=== PATIENT | female | born 1960 | race Caucasian/White ===

== ENCOUNTER 2020-10-27 10:07 | Outpatient (CLI) | payer OTHER, SELFPAY | END 2020-10-27 10:08 | disposition home or self-care (01) | LOC: ANHCOVIDVC 10:10 | PROVIDERS: PCP Internal Medicine | DX: Z23 Encounter for immunization (principal) | CPT/HCPCS: 0001A; 91300 ==

== ENCOUNTER 2020-11-17 10:12 | Outpatient (CLI) | payer OTHER, SELFPAY | END 2020-11-17 10:13 | disposition home or self-care (01) | LOC: ANHCOVIDVC 10:12 | PROVIDERS: PCP Internal Medicine | DX: Z23 Encounter for immunization (principal) | CPT/HCPCS: 0002A; 91300 ==

== ENCOUNTER 2024-09-18 08:50 | Outpatient (CLI) | payer OTHER, SELFPAY ==
--- OUTSIDE RECORDS SUMMARY | 2024-09-18 09:21 | XMS_ITS | Clinical Summary ---
Author Organization [facility] Address [address], [facility] [address] [place] [address] Phone Care Team Providers Care Refrigeration Technician Name Role Phone Domenic Bravo MD Primary Care Provider [phone] Matt Reilly DO Unavailable [phone] Mike Ace DPM Unavailable [phone] Allergies Active Allergy Reactions Criticality Noted Date Comments Dust Mite Extract Unknown 10/12/2016 Causes sneezing & headaches Sulfa Antibiotics Rash 07/26/2015 Medications buPROPion SR (WELLBUTRIN SR) 150 MG TABLET SR 12 HR Take 150 mg by mouth daily. Active cyclobenzaprine (FLEXERIL) 10 MG TabletIndication s:and prn - no more than 4 times a day Take 10 mg by mouth daily. Indications : and prn - no more than 4 times a day Active losartan (COZAAR) 25 MG Tablet Take 25 mg by mouth daily. Active metFORMIN (GLUCOPHAGE) 500 MG Tablet Take 500 mg by mouth 2 times daily (with meals). Active ranitidine (ZANTAC) 300 MG Tablet Take 300 mg by mouth daily. Active simvastatin (ZOCOR) 40 MG Tablet Take 40 mg by mouth daily. Active amitriptyline (ELAVIL) 10 MG Tablet 2 08/20/2015 Active Active Problems Problem Noted Date Diagnosed Date Onycholysis of toenail 01/30/2017 Controlled type 2 diabetes m ellitus without complication, without long-term current use of insulin 10/12/2016 BRANDON (obstructive sleep apnea) 09/22/2015 PLMD (periodic limb movement disorder) 6 Iron metabolism disorder 09/22/2015 Hypertrophy of inferior nasal turbinate 09/22/19 16 PNAR (perennial non-allergic rhinitis) 6 Resolved Problems Problem Noted Date Diagnosed Date Resolved Date Pain of great toe 10/12/2016 01/30/2017 Pain of great toe 10/12/2016 01/30/2017 Ingrown right greater toenail 10/12/2016 01/30/2017 Ingrown left greater toenail 10/12/2016 01/30/2017 Family History Medical History Relation Name Comments Cirrhosis Father Diabetes Mother Heart Attack Mother triple bypass High Cholesterol Mother Hypertension Mother Osteoarthritis Mother Thyroid Disease Mother Relation Name Status Comments Father Mother Social History Tobacco Use Types Packs/Day Years Used Date Smoking Tobacco: Former Cigarettes 2.5 40 0 07/26/1969 - 07/26/2009 Smokeless Tobacco: Never Tobacco Cessation:Counseling Given: Yes Alcohol Use Standard Drinks/Week Comments Yes 0 (1 standard drink = 0.6 oz pur e alcohol) occasional [place] Whiskey Comments No Sex and Gender Information Value Date Recorded Sex Assigned at Not on file Legal Sex Female 10:15 PM CDT Gender Identity Not on file Sexual Orientation Not on file Occupation Industry Job Start Date Job End Date disabled Not on file Not on file 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 Not on file Not on file Last Filed Vital Signs Vital Sign Reading Time Taken Comments Blood Pressure 114/78 01/30/2017 3:47 PM CDT Pulse 92 01/30/2017 3:47 PM CDT Temperature 36.2 C (97.2 F) 01/30/2017 3:47 PM CDT Respiratory Rate 18 01/30/2017 3:47 PM CDT Oxygen Saturation 94% 01/30/2017 3:47 PM CDT Inhaled Oxygen Concentration - - Weight 103.9 kg (229 lb) 01/30/2017 3:47 PM CDT Height 158.8 cm (5' 2.5 ) 01/30/2017 3:47 PM CDT Body Mass Index 41.22 01/30/2017 3:47 PM CDT Plan of Treatment Health Maintenance Due Date Last Done Comments Diabetes: Eye Exam 1960 Diabetes: Foot Exam 1960 Hepatitis C Virus (HCV) Screening 1960 TdaP Immunization 1960 Pneumococcal Immunization Co mbined (1 of 2 - PCV) 02/21/1966 Pneumococcal Immunization (5 0+ years) (1 of 2 - PCV) 02/21/1979 Pap Smear 02/21/1981 Cervical Cancer Screening (CCS) 02/21/1990 HPV/Cotest 02/21/1990 Cologuard 02/21/2010 Immunochemical Fecal Occult Blood 02/21/2010 Mammogram 02/21/2010 Zoster Immunization (1 of 2) 02/21/2010 Diabetes: Hemoglobin A1c 03/28/2017 09/25/2016 Diabetes: Nephropathy Screening 09/25/2017 7 Influenza Immunization (#1) 2024 SARS-COV-2 Immunization ( - season) 2024 Colonoscopy 08/03/2025 08/03/2015 Colorectal Cancer Screening 08/03/2025 Respiratory Syncytial Virus (RSV) Immunization (Adult) (1 - 1-dose 75+ series) 02/21/2035 08/03/2015 Hepatitis B Immunization Aged Out No longer eligible based on patient's age to complete this topic Meningococcal Immunization (ACWY) Aged Out No longer eligible based on patient's age to complete this topic Rotavirus Immunization Aged Out No lo nger eligible based on patient's age to complete this topic Procedures Procedure Name Priority Date/Time Associated Diagnosis Comments CMP (COMPREHENSIVE METABOLIC PANEL) Routine 09/25/2016 HEMOGLOBIN, A1C Routine 09/25/2016 from Last 3 Months or Most Recently Relevant to Health Maintenance Results * HEMOGLOBIN, A1C (09/25/2016) HGB-A1C 6.1 % Blood specimen (specimen) 09/25/2016 us Domenic Bravo MD CHEMISTRY ORDERABLES Final Res ult * CMP (COMPREHENSIVE METABOLIC PANEL) (09/25/2016) Blood specimen (specimen) us Domenic Bravo MD CHEMISTRY ORDERABLES Final Res ult from Last 3 Months or Most Recently Relevant to Health Maintenance Insurance MEDICAID [employer] Care Teams Refrigeration Technician Relationship Specialty Start Date End Date Domenic Bravo MD [address] [place] [address] [place] [address] PCP - General Family Medicine 07/31/15 Matt Reilly DO [address] [place] [address] [place] [address] Consulting Physician Gastroenterology 09/15/15 Mike Ace DPM [address] [place] [address] [place] [address] Consulting Physician Podiatry 10/12/16
--- OUTSIDE RECORDS SUMMARY | 2024-09-18 09:21 | XMS_ITS ---
Care Plan - [facility] Created on: September 18, 2024 ADRI EDMONDS : 1960 Sex: Female Author Organization [facility] Address [address] [place] [id number] Phone Care Team Providers Care Dough Maker Name Role Phone Unavailable Unavailable Unavailable
--- OUTSIDE RECORDS SUMMARY | 2024-09-18 09:22 | XMS_ITS | Clinical Summary ---
Author Organization [facility] Address [address] [place] [id number] Care Team Providers Care Soils Engineer Name Role Phone Unavailable Primary Care Provider Unavailabl e Social History Tobacco Use Types Packs/Day Years Used Date Smoking Tobacco: Never Assessed Comments Unknown Sex and Gender Information Value Date Recorded Sex Assigned at Not on file Legal Sex Female 7:07 PM CDT Gender Identity Not on file Sexual Orientation Not on file Last Filed Vital Signs Vital Sign Reading Time Taken Comments Blood Pressure 143/84 05/28/2013 9:53 AM PREFORMS LAMINATOR Pulse 100 05/28/2013 9:53 AM PREFORMS LAMINATOR Temperature - - Respiratory Rate - - Oxygen Saturation - - Inhaled Oxygen Concentration - - Weight 96.2 kg (212 lb) 05/28/2013 9:53 AM PREFORMS LAMINATOR Height 162.6 cm (5' 4 ) 05/28/2013 9:53 AM PREFORMS LAMINATOR Body Mass Index 36.39 05/28/2013 9:53 AM PREFORMS LAMINATOR Plan of Treatment Health Maintenance Due Date Last Done Comments Cervical Cancer Screening Pa p Smear (Age 30 to 64) Every 3 Years 1960 Colorectal Cancer Screening Colonoscopy (10 Years) 1960 Annual Physical 02/21/1963 Hepatitis C 02/21/1978 DTaP, Tdap and Td Vaccines ( 1 - Tdap) 02/21/1979 Cervical Cancer Screening Pa p with HPV Testing (Age 30 to 64) Every 5 Years 02/21/1990 Cervical Cancer Screening with HPV 02/21/1990 Mammogram Screening 2000 Zoster Vaccines (1 of 2) 02/21/2010 COVID-19 Vaccine ( - 2023-2 5 season) 2024 Influenza Adult (#1) 2024 RSV Immunization or 60+ Years (1 - 1-dose 75+ series) 02/21/2035 Meningococcal B Vaccine Aged Out No l onger eligible based on patient's age to complete this topic Meningococcal Vaccine Aged Out No joe magnus eligible based on patient's age to complete this topic Pneumococcal Vaccine: Pediat rics (0 to 5 Years) and At-Risk Patients (6 to 64 Years) Aged Out No longer eligible b ased on patient's age to complete this topic RSV Immunizations Under 20 Months Aged Out No longer eligible based on patient's age to complete this topic
--- OUTSIDE RECORDS SUMMARY | 2024-09-18 09:22 | XMS_ITS | Data Portability ---
[facility] Address [address] [place] [address] Assessment Encounter Date Assessment Date Assessment LastModified by Organization Details LastModified Time 11/22/2023 11/22/2023 Will get records from MRI neck.. [email or web address] Not available 11/22/2023 11:58:41 Plan of Treatment Reminders Order Date Submit Date Provider Last Modified By Organization Details Last Modified Time Details Appointments ANY 30 2024 02:30P Miguelina Adair MD Not available Not available Not available Lab HbA1c (hemoglob in A1c), blood 2024 025 [facility], [address] [facility], [facility], [place], [address], 09/12/2024 11:17:15 lipid panel, serum 2024 025 [facility], [address] [facility], [facility], [place], [address], 09/12/2024 08:26:51 CMP, serum or plasma 2024 025 [facility], [address] [facility], [place], [address], 09/12/2024 08:26:52 HbA1c (hemoglob in A1c), blood 2023 024 [facility] In-Office Order, Internal Use Only DO Not Attach Compendium DO Not Attach Compendium, Do Not Delete/merge, [id number] 05/27/2024 16:23:49 HbA1c (hemoglob in A1c), blood 2023 024 cristian In-Office Order, Internal Use Only DO Not Attach Compendium DO Not Attach Compendium, Do Not Delete/merge, [id number] 11/22/2023 11:59:11 CMP, serum or plasma 2023 024 [facility], [address] [facility], [facility], [place], [address], 12/27/2023 06:22:33 CBC 2023 024 [facility], [address] [facility], [facility], [place], [address], 12/27/2023 06:22:33 lipid panel, serum 2023 024 [facility], [address] [facility], [facility], [place], [address], 12/27/2023 06:22:32 albumin/c reatinine , mass ratio, urine 2023 024 [facility], [address] [facility], [facility], [place], [address], 12/27/2023 06:22:[address] referral - Please let me know if not covered by insurance 2024 025 [facility] (Audiology), [address] [place] [address] [address], [place], [address], 09/11/2024 09:09:19 physical therapist referral - neck pain with radiculop athy, history of disc disease, evaluate and treat 2023 024 [facility], [address], [place], [address], 03/06/2024 17:00:39 podiatris t referral 2023 024 [facility] Boothe DPM, [address] , [place], [address], 01/08/2024 11:53:31 Procedures None recorded. Surgeries None recorded. Imaging LDCT, chest, for lung cancer screening 2023 024 [facility] ([facility]), [address] [place], [address], 06/06/2024 11:44:11 XR, knee - pain medial patella 2023 024 [facility] ([facility]), [address] [place], [address], 12/19/2023 14:57:06 MAMMO, screening , digital, bilateral 2023 024 [facility] ([facility]), [address] [place], [address], 12/19/2023 12:33:21 Medication Orders Spiriva Respimat 2.5 mcg/actua tion solution for inhalatio n 2024 025 [id number], [address], [place], [address], 09/10/2024 19:41:07 calcium 600 mg (as carbonate )-vitamin D3 20 mcg (800 unit) tablet 2023 024 [facility] #[id number], [address], [place], [address], 05/27/2024 18:30:02 gabapenti n 400 mg capsule 2023 024 [facility]/Pharmacy #[id number], [address], [place], [address], 05/27/2024 18:30:02 cyclobenz aprine 10 mg tablet 2023 024 [facility]armacy #[id number], [address], [place], [address], 05/27/2024 18:30:03 omeprazol e 20 mg capsule,d elayed release 2023 [id number], [address], [place], [address], 05/27/2024 18:29:59 pantopraz ole 40 mg tablet,de layed release 2023 024 [id number], [address], [place], [address], 05/27/2024 18:30:03 metformin ER 500 mg tablet,ex tended release 24 hr 2023 [id number], [address] [place], [address], 05/27/2024 18:30:03 simvastat in 40 mg tablet 2023 [id number], [address] [place], [address], 05/27/2024 18:30:03 carvedilo l 6.25 mg tablet 2023 [id number], [address], [place], [address], 05/27/2024 18:30:05 bupropion HCl SR 150 mg tablet,12 hr sustained -release 2023 [id number], [address], [place], [address], 05/27/2024 18:30:04 cyclobenz aprine 10 mg tablet 2023 [id number], [address], [place], [address], 02/25/2024 15:21:06 gabapenti n 400 mg capsule 2023 [id number], [address], [place], [address], 02/25/2024 15:21:11 calcium 600 mg (as carbonate )-vitamin D3 20 mcg (800 unit) tablet 2023 024 [id number], [address] [place], [address], 02/25/2024 19:53:21 omeprazol e 20 mg capsule,d elayed release 2023 024 [id number] [address] [place], [address], 05/27/2024 18:28:26 metformin ER 500 mg tablet,ex tended release 24 hr 2023 024 [id number], [address] [place], [address], 02/25/2024 19:53:22 simvastat in 40 mg tablet 2023 024 [id number], [address] [place], [address], 02/25/2024 19:53:23 carvedilo l 6.25 mg tablet 2023 024 [id number], [address] [place], [address], 02/25/2024 19:53:22 bupropion HCl SR 150 mg tablet,12 hr sustained -release 2023 024 [id number], [address] [place], [address], 02/25/2024 19:53:23 albuterol sulfate HFA 90 mcg/actua tion aerosol inhaler 2023 024 [id number], [address], [place], [address], 02/25/2024 19:53:22 Pain Reliever Extra Strength (acetamin ophen) 500 mg tablet 2023 024 [id number], [address], [place], [address], 02/25/2024 14:19:37 amoxicill in 875 mg-potass ium clavulana te 125 mg tablet [address] [facility]armacy #[id number], [address], [place], [address], 11/22/2023 11:12:58 lidocaine 4 % topical cream 2022 023 [id number], [address], [place], [address], 04/25/2023 17:25:00 Patient TargetsNo targets recorded. 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 Referral for Onyc homycosis Referring Physician: Family Mahesh Medicine, Encounter Date: 11/22/2023 Physical Therapist Referral for Cervical disc disorder with radiculopathy neck pain with radiculopathy, history of disc disease, evaluate and treat Referring Physician: Family Maribell Aragon, Encounter Date: 02/25/2024 Internet Site Designer Referral for Garrick n of ear Please let me know if not covered by insurance Referring Physician: Family Maribell Aragon, Encounter Date: 09/10/2024 Results Created Date Observation Date Name Description Value Unit Range Abnormal Flag Note LastModifiedBy Organization Detail LastModifiedTime 11/22/1911/22/2023 HbA1c (hemo globi n A1c), blood HbA1c 6.0 Not Available In-Office Order Internal Use Only DO Not Attach Compendium DO Not Attach Compendium, Do Not Delete/merge, [id number] 11/22/2023 11:40:55 12/26/19 24 12/27/2023 ALBUM IN/CR EATIN INE RATIO ,URIN E creatinine, urine 54.0 mg/dL notest ab. Not Available [facility] ([facility]) [address] [place], [address], 12/27/2023 06:22:31 12/26/19 24 12/27/2023 ALBUM IN/CR EATIN INE RATIO ,URIN E albumin, urine <3.0 ug/mL notest ab. Not Available [facility] ([facility]) [address] [place], [address], 12/27/2023 06:22:31 12/26/19 24 12/27/2023 ALBUM IN/CR EATIN INE RATIO ,URIN E alb/creat ratio <6 Yeimi l: 0 - 29 Moder ately incre ased: 30 - 300 Sever dimas incre ased: >300 Not Available [facility] ([facility]) [address] [place], [address], 12/27/2023 06:22:31 12/26/19 24 12/27/2023 LIPID PANEL cholesterol, total 148 mg/dL 100-19 9 Not Available [facility] ([facility]) [address] [place], [address], 12/27/2023 06:22:32 12/26/19 24 12/27/2023 LIPID PANEL triglyceride s 207 mg/dL 0-149 above high normal Not Available [facility] ([facility]) [address] [place], [address], 12/27/2023 06:22:32 12/26/19 24 12/27/2023 LIPID PANEL HDL cholesterol 40 mg/dL >39 Not Available [facility]) [address] [facility], [place], [address], 12/27/2023 06:22:32 12/26/19 24 12/27/2023 LIPID PANEL VLDL cholesterol joey 34 mg/dL 5-40 Not Available [facility] ([facility]) [address] [facility], [place], [address], 12/27/2023 06:22:32 12/26/19 24 12/27/2023 LIPID PANEL LDL chol calc ([facility]) 74 mg/dL 0-99 Not Available [facility]) [address] [facility], [place], [address], 12/27/2023 06:22:32 12/26/19 24 12/27/2023 COMP. METAB OLIC PANEL (14) glucose 94 mg/dL 70-99 Not Available [facility] ([facility]) [address] [facility], [place], [address], 12/27/2023 06:22:33 12/26/19 24 12/27/2023 COMP. METAB OLIC PANEL (14) BUN 16 mg/dL 8-27 Not Available [facility] ([facility]) [address] [facility], [place], [address], 12/27/2023 06:22:33 12/26/19 24 12/27/2023 COMP. METAB OLIC PANEL (14) creatinine 0.65 mg/dL 0.57-1 .00 Not Available [facility] ([facility]) [address] [place], [address], 12/27/2023 06:22:33 12/26/19 24 12/27/2023 COMP. METAB OLIC PANEL (14) eGFR 99 mL/mi n/1.7 3 >59 Not Available [facility] ([facility]) [address] [place], [address], 12/27/2023 06:22:33 12/26/19 24 12/27/2023 COMP. METAB OLIC PANEL (14) BUN/creatini ne ratio 25 12-28 Not Available [facility] ([facility]) [address] [place], [address], 12/27/2023 06:22:33 12/26/19 24 12/27/2023 COMP. METAB OLIC PANEL (14) sodium 142 mmol/ L 134-14 4 Not Available [facility] ([facility]) [address] [facility], [place], [address], 12/27/2023 06:22:33 12/26/19 24 12/27/2023 COMP. METAB OLIC PANEL (14) potassium 4.7 mmol/ L 3.5-5. 2 Not Available [facility] ([facility]) [address] [facility], [place], [address], 12/27/2023 06:22:33 12/26/19 24 12/27/2023 COMP. METAB OLIC PANEL (14) chloride 105 mmol/ L 96-106 Not Available [facility] ([facility]) [address] [place], [address], 12/27/2023 06:22:33 12/26/19 24 12/27/2023 COMP. METAB OLIC PANEL (14) carbon dioxide, total 24 mmol/ L 20-29 Not Available [facility] ([facility]) [address] [place], [address], 12/27/2023 06:22:33 12/26/19 24 12/27/2023 COMP. METAB OLIC PANEL (14) calcium 9.2 mg/dL 8.7-10 .3 Not Available [facility] ([facility]) [address] [place], [address], 12/27/2023 06:22:33 12/26/19 24 12/27/2023 COMP. METAB OLIC PANEL (14) protein, total 7.1 g/dL 6.0-8. 5 Not Available [facility] ([facility]) [address] [place], [address], 12/27/2023 06:22:33 12/26/19 24 12/27/2023 COMP. METAB OLIC PANEL (14) albumin 4.0 g/dL 3.9-4. 9 Not Available [facility] ([facility]) [address] [place], [address], 12/27/2023 06:22:33 12/26/19 24 12/27/2023 COMP. METAB OLIC PANEL (14) globulin, total 3.1 g/dL 1.5-4. 5 Not Available [facility] ([facility]) [address] [place], [address], 12/27/2023 06:22:33 12/26/19 24 12/27/2023 COMP. METAB OLIC PANEL (14) A/G ratio 1.3 Not Available [facility] ([facility]) [address] [place], [address], 12/27/2023 06:22:33 12/26/19 24 12/27/2023 COMP. METAB OLIC PANEL (14) bilirubin, total 0.2 mg/dL 0.0-1. 2 Not Available [facility] ([facility]) [address] [place], [address], 12/27/2023 06:22:33 12/26/19 24 12/27/2023 COMP. METAB OLIC PANEL (14) alkaline phosphatase 86 IU/L 44-121 Not Available [facility]) [address] [place], [address], 12/27/2023 06:22:33 12/26/19 24 12/27/2023 COMP. METAB OLIC PANEL (14) AST (SGOT) 19 IU/L 0-40 Not Available [facility] ([facility]) [address] [place], [address], 12/27/2023 06:22:33 12/26/19 24 12/27/2023 COMP. METAB OLIC PANEL (14) ALT (SGPT) 23 IU/L 0-32 Not Available [facility] ([facility]) [address] [facility], [place], [address], 12/27/2023 06:22:33 12/26/19 24 12/26/2023 CBC, PLATE LET, NO DIFFE RENTI AL WBC 8.6 x10e3 /uL 3.4-10 .8 Not Available [facility] ([facility]) [address] [facility], [place], [address], 12/27/2023 06:22:33 12/26/19 24 12/26/2023 CBC, PLATE LET, NO DIFFE RENTI AL RBC 4.64 x10e6 /uL 3.77-5 .28 Not Available [facility] ([facility]) [address] [facility], [place], [address], 12/27/2023 06:22:33 12/26/19 24 12/26/2023 CBC, PLATE LET, NO DIFFE RENTI AL hemoglobin 13.5 g/dL 11.1-1 5.9 Not Available [facility] ([facility]) [address] [place], [address], 12/27/2023 06:22:33 12/26/19 24 12/26/2023 CBC, PLATE LET, NO DIFFE RENTI AL hematocrit 41.2 % 34.0-4 6.6 Not Available [facility] ([facility]) [address] [place], [address], 12/27/2023 06:22:33 12/26/19 24 12/26/2023 CBC, PLATE LET, NO DIFFE RENTI AL MCV 89 fL 79-97 Not Available [facility] ([facility]) [address] [place], [address], 12/27/2023 06:22:33 12/26/19 24 12/26/2023 CBC, PLATE LET, NO DIFFE RENTI AL MCH 29.1 pg 26.6-3 3.0 Not Available [facility] ([facility]) [address] [facility], [place], [address], 12/27/2023 06:22:33 12/26/19 24 12/26/2023 CBC, PLATE LET, NO DIFFE RENTI AL MCHC 32.8 g/dL 31.5-3 5.7 Not Available [facility] ([facility]) [address] [facility], [place], [address], 12/27/2023 06:22:33 12/26/19 24 12/26/2023 CBC, PLATE LET, NO DIFFE RENTI AL RDW 13.1 % 11.7-1 5.4 Not Available [facility] ([facility]) [address] [facility], [place], [address], 12/27/2023 06:22:33 12/26/19 24 12/26/2023 CBC, PLATE LET, NO DIFFE RENTI AL platelets 304 x10e3 /uL 150-45 0 Not Available [facility] ([facility]) [address] [facility], [place], [address], 12/27/2023 06:22:33 05/27/20 24 05/27/2024 HbA1c (hemo globi n A1c), blood HbA1c 6.2 Not Available In-Office Order Internal Use Only DO Not Attach Compendium DO Not Attach Compendium, Do Not Delete/merge, [id number] 05/27/2024 16:15:30 12/19/19 24 12/19/2023 MAMMO , stephen sheriff, digit al, bilat eral No observ ation record ed. [facility] [address] [place], [address], 12/24/2023 10:38:36 12/19/19 24 12/19/2023 XR, knee No observ ation record ed. [facility] [address] [place], [address], 12/24/2023 10:38:36 06/06/20 24 06/06/2024 LDCT, chest , for lung cance r stephen sheriff No observ ation record ed. [facility] [address] [place], [address], 06/11/2024 16:21:15 08/04/19 25 08/04/2024 US, kidne y No observ ation record ed. [facility] ([facility]) [address] [place], [address], 08/15/2024 16:48:59 Result Notes None recorded. Problems Name Problem SNOMED Code Status Onset Date Resolution Date Notes Provider Name and Address Organization Details Recorded Time Osteopenia 107016002 Active 2022 Not Available [facility] 4 08:46:51 Essential hypertension 74420068 Active Not Available [facility] 4 08:46:51 Dyslipidemia 374897567 Active Not Available [facility] 4 08:46:51 Type 2 diabetes mellitus without complication 197117190 Active Not Available [facility] 4 08:46:51 Obesity 865874319 Active Not Available [facility] 4 08:46:51 Chronic obstructive pulmonary disease 88616320 Active Not Available [facility] 4 08:46:51 Diabetic peripheral neuropathy 909693241 Active Not Available [facility] 4 08:46:51 Problem Notes None recorded. Procedures Surgical History Date Name Laterality Status Provider Name and Address Organization Details Recorded Time 10/12/19 23 Date of Last Pap Smear completed ARLYN Farrell [facility] 10/11/2022 14:30:23 09/22/19 23 Date of Last Mammogram completed ARLYN Farrell [facility] 10/11/2022 14:30:17 03/26/20 15 Most Recent Mammogram completed Barb Merritt [place] - [facility] 06/16/2015 11:42:11 07/16/19 11 [facility] 11:42:11 07/16/19 08 Other completed Pattie Lubin [facility] 06/16/2015 12:02:15 07/16/18 69 Tonsillectomy completed [facility] 06/16/2015 11:42:11 07/16/18 62 Appendectomy completed [facility] 06/16/2015 11:42:11 Imaging Results Imaging Date Name Status LastModified by Organiz ation Details LastModified Time 12/19/2023 MAMMO, screening, digital, bilateral completed [facility] [address] [place], [address], 12/24/2023 10:38:36 12/19/2023 XR, knee completed [facility] [address] [place], [address], 12/24/2023 10:38:36 06/06/2024 LDCT, chest, for lung cancer screening completed [facility] [address] [place], [address], 06/11/2024 16:21:15 08/04/2024 US, kidney completed [facility] ([facility]) [address] [place], [address], 08/15/2024 16:48:59 Procedure Notes None recorded. Medical Equipment None Reported. Allergies Allergen ID Allergen Name Allergen Category Reaction Reaction Severity Criticality Documentation Date Start Date Code Code System Note Provider Name and Address Organization Details Recorded Time 90706 Substance with sulfonami de structure and antibacte rial mechanism of action (substanc e) medicatio n Not available Not available Not available 02/16/2015 94378 8003 SNOMED Not Available Not Available Not Available 97319 lisinopri l medicatio n Not available Not available Not available 02/16/2015 28723 RxNorm Not Available Not Available Not Available Medications Name Sig Start Date Stop Date Status Note LastModified by Organization Details LastModified Time compounde d medicatio n active Not Available Not Available Not Available calcium 600-vit d3 800 tablet TAKE 1 TABLET BY MOUTH TWICE A DAY 05/27 completed Not Available Not Available Not Available losartan 50 mg tablet TAKE 1 TABLET BY MOUTH EVERY DAY 09/18 completed Not Available Not Available Not Available cyclobenz aprine 10 mg tablet TAKE 1 TABLET BY MOUTH EVERY DAY BEFORE BED NEEDED 2024 active Not Available Not Available Not Avai lable Miralax 17 gram/dose oral powder 12/17 completed Not Available Not Available Not Available metformin 500 mg tablet TAKE 1 TABLET BY MOUTH TWICE A DAY WITH MORNING AND EVENING MEALS 12/17 completed Not Available Not Available Not Available bupropion HCl SR 150 mg tablet,12 hr sustained -release TAKE 1 TABLET BY MOUTH EVERY DAY 2024 active Not Available Not Available Not Avai lable carvedilo l 6.25 mg tablet TAKE 1 TABLET BY MOUTH TWICE A DAY DIRECTED 2024 active Not Available Not Available Not Avai lable lidocaine 5 % topical cream daily as needed 11/21 completed Not Available Not Available Not Available fluconazo le 150 mg tablet TAKE 2 TABLETS BY MOUTH ON THE FIRST DAY, THEN 1 TABLET ONCE WEEKLY active Not Available Not Available No t Available ranitidin e 300 mg tablet TAKE 1 TABLET BY MOUTH EVERYDAY AT BEDTIME 09/14 completed Not Available Not Available Not Available ondansetr on HCl 8 mg tablet TAKE 1 TABLET BY MOUTH TWICE A DAY NEEDED FOR 5 DAYS 11/21 completed Not Available Not Available Not Available glipizide 10 mg tablet Take 1 tablet every day by oral route as directed for 30 days. 03/19 completed Not Available Not Available Not Available gabapenti n 400 mg capsule TAKE 1 CAPSULE BY MOUTH THREE TIMES A DAY DIRECTED 2024 active Not Available Not Available Not Avai lable lidocaine 4 % topical cream Apply 1 applicat ion 4 times a day by topical route as needed for 30 days. 04/25 completed Not Available Not Available Not Available fexofenad ine 180 mg tablet TAKE 1 TABLET BY MOUTH EVERY DAY DIRECTED 10/11 completed Not Available Not Available Not Available acetamino phen 500 mg tablet TAKE 2 TABLETS BY MOUTH 3 TIMES A DAY 02/24 completed Not Available Not Available Not Available simvastat in 40 mg tablet one tab po q d 2024 active Not Available Not Available Not Avai lable famotidin e 20 mg tablet TAKE 1 TABLET BY MOUTH EVERY DAY FOR 7 DAYS 11/21 completed Not Available Not Available Not Available amitripty line 25 mg tablet TAKE 1 TABLET BY MOUTH EVERY DAY DURING THE DAY 09/14 completed Not Available Not Available Not Available OneTouch Ultra Test strips USE TO TEST TWICE DAILY 2022 active Not Available Not Available Not Avai lable amitripty line 10 mg tablet TAKE 1 TABLET BY MOUTH EVERYDAY AT BEDTIME, NEEDS APPOINTM ENT BEFORE NEXT REFILL 12/17 completed Not Available Not Available Not Available cephalexi n 500 mg capsule 11/20 completed Not Available Not Available Not Available pantopraz ole 40 mg tablet,de layed release TAKE 1 TABLET BY MOUTH EVERY DAY 2024 active Not Available Not Available Not Avai lable metformin 1,000 mg tablet TAKE 1 TABLET BY MOUTH TWICE A DAY AFTER MEALS 10/30 completed Not Available Not Available Not Available naproxen sodium 220 mg tablet Take 1 tablet every 12 hours by oral route. 12/17 completed Not Available Not Available Not Available losartan 25 mg tablet TAKE 1 TABLET BY MOUTH TWICE A DAY 09/18 completed Not Available Not Available Not Available gabapenti n 300 mg capsule Take 1 capsule 3 times a day by oral route as directed for 30 days. 09/18 completed Not Available Not Available Not Available omeprazol e 20 mg capsule,d elayed release TAKE 1 CAPSULE BY MOUTH EVERY DAY BEFORE A MEAL 2023 active Not Available Not Available Not Avai lable Banophen 25 mg capsule TAKE 1 CAPSULE BY MOUTH EVERY 6 HOURS NEEDED 11/21 completed Not Available Not Available Not Available methylpre dnisolone 4 mg tablets in a dose pack TAKE 6 TABLETS ON DAY 1 DIRECTED ON PACKAGE AND DECREASE BY 1 TAB EACH DAY FOR A TOTAL OF 6 DAYS 11/21 completed Not Available Not Available Not Available albuterol sulfate HFA 90 mcg/actua tion aerosol inhaler INHALE 2 PUFFS BY MOUTH 4 TIMES A DAY NEEDED 2024 active Not Available Not Available Not Avai lable losartan 100 mg tablet TAKE 1/2 TABLET BY MOUTH ONCE A DAY 09/18 completed Not Available Not Available Not Available fluticaso ne propionat e 50 mcg/actua tion nasal spray,catherine pension INSTILL 1 SPRAY INTO EACH NOSTRIL NEEDED 03/29 completed Not Available Not Available Not Available metformin ER 500 mg tablet,ex tended release 24 hr TAKE 1 TABLET BY MOUTH TWICE A DAY active Not Available Not Available No t Available amoxicill in 875 mg-potass ium clavulana te 125 mg tablet TAKE 1 TABLET BY MOUTH EVERY 12 HOURS AFTER MEALS FOR 10 DAYS 11/21 completed Not Available Not Available Not Available amoxicill in 500 mg-potass ium clavulana te 125 mg tablet Take 1 tablet every 12 hours by oral route after meals for 7 days. 03/19 completed Not Available Not Available Not Available diabetic supplies, miscellan . 06/18 completed [employer] Not Available Not Available Not Available ezetimibe 10 mg tablet one tab po q d 2024 active Not Available Not Available Not Avai lable Alcohol Prep Pads USE TWICE DAILY NEEDED active Not Available Not Available No t Available metformin ER 1,000 mg tablet,ex tended release 24hr (osmotic) Take by oral route for 30 days. 10/30 completed Not Available Not Available Not Available Hair,Skin and Nails tablet Take by oral route. 11/20 completed Not Available Not Available Not Available ProAir HFA 11/20 completed Not Available Not Available Not Available calcium 600 mg (as carbonate )-vitamin D3 20 mcg (800 unit) tablet Take 1 tablet twice a day by oral route. 2023 active Not Available Not Available Not Avai lable Spiriva Respimat 2.5 mcg/actua tion solution for inhalatio n Inhale 2 puffs every day by inhalati on route. 2024 active Not Available Not Available Not Avai lable Shingrix (PF) 50 mcg/0.5 mL intramusc ular suspensio n, kit 09/14 completed Not Available Not Available Not Available AppMeshTouch Ultra Blue Test Strip USE DIRECTED TO TEST BLOOD SUGAR TWICE DAILY 03/29 completed Not Available Not Available Not Available OneTouch Ultra2 Meter active Not Available Not Available Not Available OneTouch Delica Plus Lancet 33 gauge active Not Available Not Available Not Available Fluzone Quad (PF) 60 mcg (15 mcg x 4)/0.5 mL IM syringe PHARMACY ADMINIST [facility]USSY 09/14 completed Not Available Not Available Not Available Vitals Date Recorded Body height Body mass index (BMI) Body weight Heart rate Oxygen saturation Oxygen saturation in Arterial blood by Pulse oximetry Systolic blood pressure Diastolic blood pressure Provider Name and Address Organization Details Last Updated DateTime 3 158.12 cm 36.1 kg/m2 94329.8 8 g 95 /min 96 % 96 % 126 mm[Hg] 82 mm[Hg] Mayra Bañuelos MA [facility] 3 15:53:28 Date Recorded Body height Body mass index (BMI) Body weight Body temperature Respiratory rate Oxygen saturation Oxygen saturation in Arterial blood by Pulse oximetry Heart rate Systolic blood pressure Diastolic blood pressure Provider Name and Address Organization Details Last Updated DateTime 4 158.12 cm 36.6 kg/m2 32755.6 6 g 98.9 [degF] 16 /min 97 % 97 % 92 /min 122 mm[Hg] 72 mm[Hg] Bella Davis MA [facility] 4 11:25:54 Date Recorded Body height Body mass index (BMI) Body weight Oxygen saturation Oxygen saturation in Arterial blood by Pulse oximetry Heart rate Systolic blood pressure Diastolic blood pressure Provider Name and Address Organization Details Last Updated DateTime 4 158.12 cm 36.6 kg/m2 94291.6 6 g 97 % 97 % 80 /min 122 mm[Hg] 72 mm[Hg] Bella Davis MA [facility] 4 14:21:12 Date Recorded Body height Oxygen saturation Oxygen saturation in Arterial blood by Pulse oximetry Heart rate Systolic blood pressure Diastolic blood pressure Provider Name and Address Organization Details Last Updated DateTime 4 158.12 cm 99 % 99 % 79 /min 130 mm[Hg] 80 mm[Hg] Bella Davis MA [facility] 4 16:21:48 Date Recorded Body mass index (BMI) Body weight Heart rate Oxygen saturation Oxygen saturation in Arterial blood by Pulse oximetry Systolic blood pressure Diastolic blood pressure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
--- OUTSIDE RECORDS SUMMARY | 2024-09-18 09:22 | XMS_ITS ---
Author Organization [facility] Address [address] [place] [address] Phone Care Team Providers Care Talent Analyst Name Role Phone Unavailable Unavailable Unavailable Plan of Treatment No Plan of Treatment Recorded Assessments Includes: Assessments for all patient encounters No Assessments Recorded Medical Equipment - Implanted Devices Includes: Current and historical Devices No Medical Equipment Recorded Medications Administered Includes: Administered Medications in patient's chart No Administered Medications Recorded Results Includes: Results from 09/19/2023 through 09/18/2024 No Results Recorded For Specified Dates History of Present Illness History of Present Illness not supported for this document type No History of Present Illness Recorded Social History No Social History Recorded - Smoking Status Unknown Medical History Includes: Medical History in patient's chart No Medical History Recorded Family History Includes: Family History in patient's chart No Family History Recorded Review of Systems Review of Systems not supported for this document type No Review of Systems Recorded Mental Status No Mental Status Recorded Functional Status No Functional Status Recorded Physical Exam Physical Exam not supported for this document type No Physical Exam Recorded Clinical Notes Includes: Signed Clinical Notes starting from 08/04/2022 No Clinical Notes Recorded
--- OUTSIDE RECORDS SUMMARY | 2024-09-18 09:22 | XMS_ITS | Data Portability ---
Author Organization [employer], Main Office Address [address] [place] [address] Assessment No assessment recorded. Plan of Treatment Reminders Order Date Submit Date Provider Last Modified By Organization Details Last Modified Time Details Appointments None record ed. Lab None record ed. Referral None record ed. Procedures None record ed. Surgeries None record ed. Imaging None record ed. Medication Orders None record ed. Patient TargetsNo targets recorded. Patient InstructionsNo instructions recorded. Reason for Referral None Reported. Problems Name Problem SNOMED Code Status Onset Date Resolution Date Notes Provider Name and Address Organization Details Recorded Time Onychomycosis 556344603 Active 2023 LUDMILA Alvarado, [employer] 4 15:27:32 Onychomycosis of toenails 106026567 Active 2023 Efren Craig DPM [address], [address], [address] , [employer] 4 15:34:25 Problem Notes None recorded. Procedures Surgical History Date Name Laterality Status Provider Name and Address Organization Details Recorded Time 4 Nail Debridement completed Efren Craig DPM [address], [address], [place], [address], [employer] 11/29/2023 15:33:35 Imaging Results None recorded. Procedure Notes None recorded. Medical Equipment None Reported. Allergies No known drug allergies Medications Name Sig Start Date Stop Date Status Note LastModified by Organization Details LastModified Time fluconazole 150 mg tablet Take 1 tablet every week by oral route. 024 active Not Available Not Available Not Avai lable Vitals Date Recorded Body height Body mass index (BMI) Body weight Oxygen saturation Oxygen saturation in Arterial blood by Pulse oximetry Body temperature Heart rate Systolic blood pressure Diastolic blood pressure Provider Name and Address Organization Details Last Updated DateTime 157.48 cm 36.9 kg/m2 56582.6 6 g 91 % 91 % 97.2 [degF] 78 /min 163 mm[Hg] 93 mm[Hg] LUDMILA Alvarado [place] [facility] [place] [facility] 15:10:31 Social History Question Answer Notes LastModified by Organizat ion Details LastModified Time Tobacco Smoking Status Former Smoker LUDMILA Alvarado null, [facility] [place] [facility] 11/29/2023 15:06:05 What Is Your Level Of Alcohol Consumption? None Information not available 11/29/2023 What Is Your Level Of Caffeine Consumption? Moderate Information not available 11/29/2023 What Was The Date Of Your Most Recent Tobacco Screening? 11/29/2023 [email or web address] Information not available 11/29/2023 Do You Use Any Illicit Or Recreational Drugs? No [email or web address] Information not available 11/29/2023 Has Tobacco Cessation Counseling Been Provided? No [email or web address] Information not available 11/29/2023 How Many Years Have You Smoked Tobacco? 40 [email or web address] Information not available 11/29/2023 Do You Or Have You Ever Used Any Other Forms Of Tobacco Or Nicotine? No [email or web address] Information not available 11/29/2023 Sex: Unknown Functional Status None recorded. Mental Status None recorded. Family History Nothing Reported. Medical History No medical history recorded. Gynecological HistoryNo gynecological history recorded. Obstetrics History GPAL:G 0 P 0 0 0 0 Past Encounters Encounter ID Performer Location Encounter Start Date Encounter Closed Date Diagnosis/Indication Diagnosis SNOMED-CT Code Diagnosis ICD10 Code Diagnosis Note [id number] Efren Craig DPM [facility] [address] [address] 11/29/2023 14:42:53 11/29/2023 16:05:21 Onychomycosis 910179100 B35.1 Onychomyco sis of toenails 916880829 B35.1 Health Concerns Section Related Observation LastModified by Organization Detai ls LastModified Time None Recorded Concern Status LastModified by Organization Details LastModified Time None Recorded Advance Directives Directive None Recorded Payers Encounter Date Sequence Insurance Name Policy Number Policy Griffiths Covered Member ID Griffiths Member ID Guarantor Name 11/29/2023 1 [facility] (MEDICAID HMO) [id number] Imelda Adams [id number] Imelda Adams Notes Date Note Type Note Provider Name and Address Organization Details Recorded Time 11/29/2023 text/html Thick, ingrown, curvy discolored nails both feet. Efren Craig, ALESHA [address] [facility] [address], [place], [address], [facility] 11/29/2023 15:34:53 OBGyn Episode No OBEpisode recorded.
== END 2024-09-18 08:51 | disposition home or self-care (01) ==
LOC: ANHAUDIO 08:50
PROVIDERS: PCP Emergency Medicine; Visit Provider Emergency Medicine
DX: H90.3 Sensorineural hearing loss, bilateral (principal); H93.12 Tinnitus, left ear; H61.21 Impacted cerumen, right ear
CPT/HCPCS: 92557; 92567

== ENCOUNTER 2025-03-25 07:37 | Outpatient (CLI) | payer MEDICARE, MEDICAID, SELFPAY ==
--- NOTE | ~2025-03-25 | MR_ITS ---
EXAMINATION: MR cervical spine wo con DATE: 03/25/2025 08:18 INDICATION: Abnormal findings on diagnostic imaging. TECHNIQUE: Magnetic resonance imaging (MRI) of the cervical spine was performed without intravenous contrast. COMPARISON: None FINDINGS: There is mild kyphosis of cervical spine. There is 2 mm anterolisthesis of C4 on C5. Vertebral body heights are normal. There is severely decreased disc height from C4-C5 through C6-C7. The spinal cord signal intensity is normal. The following disc levels are specifically discussed: C2-C3: There is a central protrusion. There is mild bilateral uncovertebral joint osteoarthritis. There is severe bilateral facet joint osteoarthritis. There is no neural foraminal stenosis. There is no central canal stenosis. C3-C4: There is a central protrusion. There is moderate bilateral uncovertebral joint osteoarthritis. There is severe bilateral facet joint osteoarthritis. There is moderate right and mild left neural foraminal stenosis. There is no central canal stenosis. C4-C5: The disc is bulging. There is severe bilateral uncovertebral joint osteoarthritis. There is severe bilateral facet joint osteoarthritis. There is moderate bilateral neural foraminal stenosis. There is mild central canal stenosis. C5-C6: The disc is bulging. There is severe bilateral uncovertebral joint osteoarthritis. There is mild bilateral facet joint osteoarthritis. There is moderate bilateral neural foraminal stenosis. There is mild central canal stenosis. C6-C7: The disc is bulging. There is severe bilateral uncovertebral joint osteoarthritis. There is severe right and moderate left facet joint osteoarthritis. There is moderate bilateral neural foraminal stenosis. There is mild central canal stenosis. C7-T1: The disc does not extend beyond the endplate margin. There is no uncovertebral joint osteoarthritis. There is severe right and mild left facet joint osteoarthritis. There is mild right neural foraminal stenosis. There is no central canal stenosis. IMPRESSION: 1. Severe cervical spondylosis. Reviewed, dictated and finalized at location E.
== END 2025-03-25 07:38 | disposition home or self-care (01) ==
PROVIDERS: PCP Emergency Medicine; Visit Provider Emergency Medicine
DX: R93.89 Abnormal findings on diagnostic imaging of other specified body structures (principal); M47.892 Other spondylosis, cervical region
CPT/HCPCS: 72141